=== PATIENT | female | born 1930 | race Caucasian/White ===

== ENCOUNTER 2017-05-04 04:26 | Inpatient (IN) | payer MEDICARE, BC ==
[~2017-05-04] VITALS: Ht 172.7 cm; Wt 64.0 kg
[2017-05-04] MEDS ORDERED: ASPIRIN 325 MG TABLET PO ONE (05:00)
--- NOTE | 2017-05-04 05:00 | NUR ---
Pt ambulated to room with steady gait. Pt c/o SOB at rest and numbness/ tightness to front of neck radiating up to lower jaw. Pt denies CP at this time. Pt speaking full sentences. Pt had recent WI approx 1 wk ago with similiar symptoms. Pt placed on monitor, NSR. O2 sats >95% on RA. Lung sounds slightly dimished in bases. EKG obtained and given to Dr. De. Pt resting in position of comfort for self. Awaiting further eval.
[2017-05-04] MEDS ORDERED: ASPIRIN 325 MG TABLET ONE (05:16)
[2017-05-04 05:26] LABS: BASOPHILS % (AUTO) 0.8 % (0.0-2.0); EOSINOPHILS # (AUTO) 0.2 K/uL (0.0-0.7); EOSINOPHILS % (AUTO) 4.6 % (0.0-7.0); HEMOGLOBIN 9.4 G/DL (12.0-16.0); LYMPHOCYTES # (AUTO) 1.1 K/UL (0.8-4.8); LYMPHOCYTES % (AUTO) 23.9 % (20.5-51.5); MEAN CORPUSCULAR HEMOGLOBIN 32.7 UUG (27.0-31.0); MEAN CORPUSCULAR HGB CONC 33 g/dL (32.0-37.0); MEAN CORPUSCULAR VOLUME 97.9 FL (81.0-99.0); MONOCYTES # (AUTO) 0.3 K/UL (0.1-1.30); MONOCYTES % (AUTO) 6.6 % (0.0-11.0); NEUTROPHILS # (AUTO) 2.8 K/UL (1.8-8.9); NEUTROPHILS % (AUTO) 64.1 % (38.5-71.5); PLATELET COUNT (AUTO) 232 K/UL (150-450); RED BLOOD CELL COUNT(AUTO) 2.86 MIL/UL (4.2-5.4); WHITE BLOOD COUNT (AUTO) 4.4 K/UL (4.0-11.2)
[2017-05-04] MEDS ORDERED: PRAS10TA5 PO (05:38)
[2017-05-04] MEDS ORDERED: METO-302 PO (05:38)
[2017-05-04] MEDS ORDERED: CELE100C PO (05:38)
[2017-05-04] MEDS ORDERED: ROSU5TAB PO (05:38)
[2017-05-04] MEDS ORDERED: ASPI-605 PO (05:46)
[2017-05-04 05:47] LABS: ALANINE AMINOTRANSFERASE 26 U/L (14-59); ALKALINE PHOSPHATASE 70 U/L (50-136); ASPARTATE AMINOTRANSFERASE 14 U/L (15-37); BILIRUBIN,DIRECT 0.1 mg/dL (0.0-0.2); BILIRUBIN,TOTAL 0.3 mg/dL (0.2-1.0); CARBON DIOXIDE 23 mmol/L (21-32); CHLORIDE 111 mmol/L (98-107); CREATININE 1.3 mg/dL (0.6-1.3); GLUCOSE 160 mg/dL (74-106); POTASSIUM 4.1 mmol/L (3.5-5.1); TOTAL PROTEIN, SERUM 5.7 g/dL (6.4-8.2); UREA NITROGEN, BLOOD 32 mg/dL (7-18)
--- NOTE | 2017-05-04 05:50 | NUR ---
Dr. De notified of pt's troponin level of 0.069.
[2017-05-04] MEDS ORDERED: FUROSEMIDE 20 MG/2 ML VIAL IV ONE (06:00)
[2017-05-04] MEDS ORDERED: NITROGLYCERIN 0.4 MG/TAB BOTTLE SL ONE ×2 (06:00→06:04)
--- NOTE | 2017-05-04 06:06 | NUR ---
Epic paged for admission.
--- NOTE | 2017-05-04 06:10 | NUR ---
Dr. De spoke with Rene Martines for admission of pt.
[2017-05-04] MEDS ORDERED: ACETAMINOPHEN 325 MG TABLET PO PRN (06:15)
[2017-05-04] MEDS ORDERED: HYDROCODONE/APAP 5-325MG TABLET PO PRN (06:15)
[2017-05-04] MEDS ORDERED: IV NORMAL SALINE 500 ML BAG IV ONE (06:15)
[2017-05-04] MEDS ORDERED: MAGNESIUM HYDROXIDE 30 ML LIQUID UDC PO PRN (06:15)
[2017-05-04] MEDS ORDERED: Z GUARD REMEDY PASTE 57 GM TUBE TOP PRN (06:15)
[2017-05-04] MEDS ORDERED: ONDANSETRON 4 MG/2 ML VIAL IV PRN (06:15)
--- NOTE | 2017-05-04 06:25 | NUR ---
Dr. De speaking with Dr. Lieberman (pt's PMD) to notify him that this pt is to be admitted.
[2017-05-04] MEDS ORDERED: FUROSEMIDE 40 MG/4 ML VIAL ONE (06:41)
[2017-05-04] MEDS ORDERED: IV NORMAL SALINE 250 ML IV ONE (06:54)
[2017-05-04] MEDS ORDERED: IOHEXOL 350 100 ML INFUS..BTL ONE (06:54)
--- NOTE | 2017-05-04 07:11 | NUR ---
Pt to CT via w/c. Report given to JEFFERSON Lamas. I relinquish care of pt at this time
--- NOTE | 2017-05-04 07:37 | NUR ---
Pt back from CT, denies any pain or sob, NAD noted.
--- NOTE | 2017-05-04 07:40 | NUR ---
[facility] report given to JEFFERSON Mane via telephone.
--- NOTE | 2017-05-04 08:01 | NUR ---
Pt trans to tele, NAD noted.
[2017-05-04 08:20] VITALS: BP 153/54
--- NOTE | 2017-05-04 08:20 | NUR ---
received from ER per mary grace awake alert and oriented, with c/o shortness of breath since 9PM yesterday, oriented to bed controls and call button, tele applied- SR 70's, routine admission care rendered, safety measures provided
--- NOTE | 2017-05-04 09:30 | NUR ---
voiding qs to BR pt had Lasix in ER
--- NOTE | 2017-05-04 09:45 | NUR ---
here- wanted to know when MD is coming, updated on pt's condition, and informed that MD will be making rounds, spoke to charge nurse as well
[2017-05-04 09:58] LABS: *BILIRUBIN,URIN NEGATIVE (NEGATIVE); *BLOOD, URINE NEGATIVE (NEGATIVE); *CLARITY,URINE CLEAR (CLEAR); *COLOR,URINE YELLOW (YELLOW); *KETONES,URINE NEGATIVE (NEGATIVE); *PROTEIN,URINE NEGATIVE (NEGATIVE); *UROBILINOGEN,URINE 0.2 E.U./dl (NORMAL); LEUKOCYTE ESTERASE ,URINE NEGATIVE (NEGATIVE); NITRITE, URINE NEGATIVE (NEGATIVE); PH,URINE 5.5 (5.0-8.0); UGLUCOSE NEGATIVE (NEGATIVE)
[2017-05-04 10:23] LABS: BACTERIA,URINE NONE SEEN /HPF (NONE SEEN); RBC,URINE 0-3 /HPF (0-3); SQUAMOUS EPITHELIAL CELL,UR FEW /HPF (NONE SEEN); WBC,URINE 0-3 /HPF (0-3)
[2017-05-04] MEDS ORDERED: CARVEDILOL 3.125 MG TABLET PO SCH (11:00)
[2017-05-04 11:34] VITALS: BP 153/57
[2017-05-04 11:42] LABS: THYROID STIMULATING HORMONE 1.124 mIU/mL (0.358-3.740)
--- NOTE | 2017-05-04 12:30 | NUR ---
Dr Busch here and spoke to pt., denies of pain, informed of stool needed
--- NOTE | 2017-05-04 12:45 | NUR ---
stool sent to lab
[2017-05-04 12:50] LABS: IRON, SERUM 71 ug/dL (50-175)
[2017-05-04 14:32] LABS: *OCCULT BLOOD STOOL NEGATIVE (NEGATIVE)
--- NOTE | 2017-05-04 15:25 | NUR ---
pt wanted to go home, here- discharge order per Dr Manzanares- pt informed
[2017-05-04 15:33] VITALS: BP 150/60
--- NOTE | 2017-05-04 15:50 | NUR ---
discharge instructions given- pt states doesn't need instructions on home medications, saline lock removed- no swelling/redness noted on site, tele d/cd
--- NOTE | 2017-05-04 16:15 | NUR ---
escorted to car per w/c under 's care, pt in stable condition, all belongings with her
[2017-05-05] MEDS ORDERED: ASPIRIN 81 MG TAB.CHEW PO SCH (09:00)
== END 2017-05-04 16:15 | disposition home or self-care (01) | DRG 280 ==
LOC: ER 04:27 → TELE 07:56
PROVIDERS: ADMIT Contractor; ATTEND Contractor
DX: I21.4 Non-ST elevation (NSTEMI) myocardial infarction (principal); N17.0 Acute kidney failure with tubular necrosis; I25.2 Old myocardial infarction; E78.5 Hyperlipidemia, unspecified; M19.90 Unspecified osteoarthritis, unspecified site; I50.9 Heart failure, unspecified; Z98.890 Other specified postprocedural states; I25.10 Atherosclerotic heart disease of native coronary artery without angina pectoris; D64.9 Anemia, unspecified; N20.0 Calculus of kidney; K44.9 Diaphragmatic hernia without obstruction or gangrene; Z87.442 Personal history of urinary calculi; R73.03 Prediabetes; Z90.49 Acquired absence of other specified parts of digestive tract; Z95.5 Presence of coronary angioplasty implant and graft; Z87.891 Personal history of nicotine dependence; I70.0 Atherosclerosis of aorta; I10 Essential (primary) hypertension
CPT/HCPCS: 36415; 70030-TC; 71010; 71275; 83550; 84443; 85025; 85730; 93005; A4663; J1940; J7050; Q9967